=== PATIENT | female | born 1935 | race Caucasian/White ===

== ENCOUNTER 2019-03-11 08:36 | Emergency (ER) | payer BC, OTHER ==
[2019-03-11] MEDS ORDERED: DEXAMETHASONE SOD PHOSPHATE 4 MG/ML 1ML VIAL ONE (09:10)
[2019-03-11] MEDS ORDERED: KETOROLAC TROMETHAMINE 30MG/ML ONE (09:11)
== END 2019-03-11 10:16 | disposition home or self-care (01) ==
LOC: EDH 08:36
DX: M43.06 Spondylolysis, lumbar region (principal); M54.41 Lumbago with sciatica, right side
CPT/HCPCS: 72100; 96372 ×2; 99284; J1100; J1885

== ENCOUNTER → 2023-01-02 | Outpatient (CLI) | payer BC | END | disposition home or self-care (01) | LOC: SHCH 12:21 | PROVIDERS: ATTEND Internal Medicine Cardiovascular Disease | DX: I11.9 Hypertensive heart disease without heart failure (principal); R01.1 Cardiac murmur, unspecified | CPT/HCPCS: 93306 ==